=== PATIENT | male | born 1930 | race Caucasian/White ===

== ENCOUNTER 2016-07-09 01:18 | Day surgery (SDC) | payer MEDICARE ==
[2016-07-09] VITALS (10 sets, daily range): BP systolic 114–142; BP diastolic 66–82; PULSE 60–61; RESP 12–17; O2SAT 96–99
[~2016-07-09] VITALS: Ht 176.5 cm; Wt 74.8 kg
[~2016-07-09 01:18] MED LIST: ASA/1TAB6 PO; ASCO100089 PO; CALC200T6 PO; DILT180C81 PO; FLUT9.9S NS; FOLI0.4T2 PO; GLUC500C11 PO; LEVO50TA6 PO; METF500T4 PO; MULT-1018 PO; OMEG-38 PO; PRAV40TA PO; SERT100T9 PO; VIT1TABL83 PO; WARF5TAB7 PO
[2016-07-09] MEDS ORDERED: 0.9% Sodium Chloride 1,000 ML IV SCH (07:10)
[2016-07-09 08:38] LABS: BASOPHILS % (AUTO) 0.5 % (0-3); EOSINOPHILS % (AUTO) 1.5 % (0-5); MONOCYTES % (AUTO) 10.9 % (4-12); Mean Corpuscular Volume 93.5 fL (81-100); NEUTROPHILS % (AUTO) 58.5 % (40-74); Platelet Count 236 bil/L (150-400)
[2016-07-09] MEDS ORDERED: WARF7.5T4 PO (09:23)
[2016-07-09] MEDS ORDERED: Heparin 5,000 Units/500 mL NS Premix IV ONE (09:36)
[2016-07-09] MEDS ORDERED: Heparin 1,000 Units/500 mL NS Premix IV ONE (09:36)
[2016-07-09] MEDS ORDERED: 0.9% Sodium Chloride 50 ML ONE (09:36)
[2016-07-09] MEDS ORDERED: Heparin 1,000 Unit/mL 10 mL Inj ONE (10:04)
[2016-07-09] MEDS ORDERED: Nitroglycerin 50,000 mcg/250 mL D5W Premix IV ONE (10:04)
[2016-07-09] MEDS ORDERED: fentaNYL-PF 50 mCg/mL 2 mL Inj ONE (10:09)
--- NOTE | 2016-07-09 11:44 | CS94 ---
[address] [address] DIAGNOSTIC CARDIAC CATHETERIZATION PATIENT: BRITTANY GANT : 1930 MR#: [id number] ADMIT: 07/09/2016 JOB ID: [id number] SERVICE DATE: 07/09/2016 PATIENT PROFILE: The patient is an 86 years old male with symptomatic severe aortic stenosis. PROCEDURE: 1. Right heart catheterization. 2. Retrograde left heart catheterization. 3. Selective coronary angiography. VASCULAR CLOSURE DEVICE: Perclose. COMPLICATIONS: None. METHOD: Combined right and left heart catheterization was performed from the right groin under 1% lidocaine local anesthesia using 6 and 7-German sheaths. A 7-German Hollywood-Royce catheter was used for the right heart pressures. Cardiac output was determined by both thermodilution technique and Devorah method. Selective coronary angiogram was performed in multiple projections, including cranial and caudal angulations with hand-injected contrast via JL4 and 3DRC catheters. Right femoral angiogram was performed. Following sheath removal, hemostasis was achieved by using a Perclose device. The patient tolerated the procedure well. He was transferred to [facility] in good condition. TOTAL CONTRAST USED: 45 cc. FLUOROSCOPY TIME: 7.8 minutes. RESULTS: 1. Mean right atrial pressure is 13 mmHg. Right ventricular pressure is 35/11 mmHg. Pulmonary artery pressure is 31/18 mmHg. 2. Mean pulmonary capillary wedge pressure is 19 mmHg with a V wave of 25 mmHg. 3. Aortic pressure is 117/54 mmHg. 4. Arterial oxygen saturation is 97%. Mixed venous saturation is 67%. 5. Cardiac output by the Devorah method is 4.51 L/minute with an index of 2.37 L/minute/meter squared. 6. Cardiac output by the thermodilution technique is 4.65 L/minute with an index of 2.45 L/minute/meter squared. 7. Selective coronary angiogram: a. The coronary arteries are heavily calcified. b. The left main coronary artery has minimal stenosis. c. The left anterior descending artery has a long, 30% stenosis in the mid portion. The diagonal branch has minimal disease. d. The circumflex artery has minor irregularity. e. The dominant and large right coronary artery is heavily calcified and has minor irregularity of 20% to 30% stenosis. CONCLUSION: 1. Heavily calcified coronary arteries with minimal disease. 2. Cardiac index is 2.4 L/minute/meter squared. 3. Mean pulmonary capillary wedge pressure is 19 mmHg with a V wave of 25 mmHg. MTDD
--- NOTE | 2016-07-09 13:50 | NUR ---
Right groin remains intact, patient has been up to bathroom for void. Discharge instructions reviewed with patient and spouse.Patient discharged ambulatory.
== END 2016-07-09 23:59 | disposition home or self-care (01) ==
LOC: SOUO 01:18
PROVIDERS: ATTEND Internal Medicine Interventional Cardiology
DX: I35.0 Nonrheumatic aortic (valve) stenosis (principal); I25.10 Atherosclerotic heart disease of native coronary artery without angina pectoris; I25.84 Coronary atherosclerosis due to calcified coronary lesion; I34.0 Nonrheumatic mitral (valve) insufficiency; I48.0 Paroxysmal atrial fibrillation; Z95.0 Presence of cardiac pacemaker; I10 Essential (primary) hypertension; E78.5 Hyperlipidemia, unspecified; I87.2 Venous insufficiency (chronic) (peripheral); E11.9 Type 2 diabetes mellitus without complications; G47.30 Sleep apnea, unspecified; Z87.891 Personal history of nicotine dependence; Z79.01 Long term (current) use of anticoagulants
CPT/HCPCS: 36415; 80048; 85025; 93005; 93456; 99152; 99153; C1760; C1769; J1644; J2060; J2250; J3010; J7030; Q9967